=== PATIENT | male | born 1960 ===

== ENCOUNTER 2017-10-16 12:52 | Observation (INO) | payer BC, OTHER ==
[~2017-10-16] VITALS: Ht 180.3 cm; Wt 77.1 kg
[~2017-10-16 12:52] MED LIST: IPRA14.7 INH; PRON INH
--- NOTE | 2017-10-16 12:52 | NUR ---
Patient was BIBA and taken to bed 11 via gurney per EMS.
[2017-10-16 12:54] VITALS: BP 141/99
--- NOTE | 2017-10-16 13:18 | NUR ---
PT BIB EMR ON GURNEY FROM FOR C/O ABDOMINAL PAIN THAT STARTED SINCE 3 - 4 DAYS AGO, PT REPORTED THAT HX : COPD, ASTHMA. PT AA/O X4. BREATHING EVEN AND REGULAR.
--- NOTE | 2017-10-16 13:22 | NUR ---
Dr. Sandoval evaluating patient at bedside.
[2017-10-16] MEDS ORDERED: NACL 0.9% 1,000 ML IV SCH (13:27)
[2017-10-16] MEDS ORDERED: ALBUTEROL 0.083% 2.5 MG/3 ML NEBU INH ONE (13:30)
[2017-10-16] MEDS ORDERED: ONDANSETRON 4 MG/2 ML VIAL IVP ONE (13:30)
[2017-10-16] MEDS ORDERED: MORPHINE SULFATE 4 MG/ML SYR IVP ONE ×2 (13:30→15:10)
[2017-10-16] MEDS ORDERED: methylPREDNISolone SS 125 MG/2 ML VIAL IVP ONE (13:30)
[2017-10-16] MEDS ORDERED: IPRATROPIUM 0.02% 0.5 MG/2.5 ML NEBU INH ONE (13:30)
--- NOTE | 2017-10-16 13:35 | NUR ---
Patient taken to CT via wheelchair per tech.
--- NOTE | 2017-10-16 13:45 | NUR ---
RT AT THE BEDSIDE GIVEN PT BREATHING TREATMENT AT THIS TIME
--- NOTE | 2017-10-16 13:47 | NUR ---
PLEBHOTOMIST AT BEDSIDE FOR BLOOD DRAW PER MD ORDERED
--- NOTE | 2017-10-16 13:50 | NUR ---
EKD DONE AT BEDSIDE BT TECH AT THIS TIME.
[2017-10-16 13:59] LABS: EOSINOPHILS # (AUTO) 0.1 K/uL (0-0.4); MEAN CORPUSCULAR HGB CONC 33 g/dL (33-37)
[2017-10-16 14:04] LABS: BASOPHILS # (AUTO) 0.6 K/uL (0.00-0.22); HEMATOCRIT 50.7 % (36-52); HEMOGLOBIN 16.7 g/dL (12.0-18.0); LYMPHOCYTES # (AUTO) 1.9 K/uL (2.0-11.5); MEAN CORPUSCULAR HEMOGLOBIN 32 pg (27-31); MEAN CORPUSCULAR VOLUME 96 fL (80-94); MONOCYTES # (AUTO) 1.1 K/uL (0.8-1.0); NEUTROPHILS # (AUTO) 6.8 K/uL (1.8-7.7); PLATELET COUNT (AUTO) 246 K/uL (140-450); RED BLOOD CELL COUNT(AUTO) 5.28 MIL/uL (4.20-6.10); RED CELL DISTRIBUTION WIDTH 14.8 % (11.6-13.7); WHITE BLOOD COUNT (AUTO) 10.5 K/uL (4.8-10.8)
[2017-10-16 14:14] LABS: ANION GAP 16.9 (8-16); CARBON DIOXIDE 26.2 mmol/L (21-32); POTASSIUM 3.1 mmol/L (3.5-5.1)
[2017-10-16 14:18] LABS: PROTHROMBIN TIME 10.6 secs (10.8-13.4)
[2017-10-16 14:21] LABS: ALBUMIN 4.2 g/dL (3.4-5.0); TOTAL BILIRUBIN 0.5 mg/dL (0.0-1.0)
[2017-10-16 14:30] LABS: MONOCYTES % (AUTO) 5.2 % (1.7-9.3); NEUTROPHILS % (AUTO) 58.9 % (42.2-75.2)
[2017-10-16 14:31] LABS: BASOPHILS % (AUTO) 1.7 % (0.0-2.0); EOSINOPHILS % (AUTO) 1.2 % (0.0-4.0)
--- NOTE | 2017-10-16 14:38 | NUR ---
TAKEN XRAY AT BEDSIDE AT THIS TIME BY [employer]
[2017-10-16] MEDS ORDERED: HYDROCODONE-ACETAMIN 5-325 MG (15:28)
[2017-10-16] MEDS ORDERED: COMBIVENT RESPIMAT INHAL SPRAY (15:28)
[2017-10-16] MEDS ORDERED: ALBUTEROL SUL 2.5 MG/3 ML SOLN (15:28)
[2017-10-16 15:47] LABS: APPEARANCE,URINE CLEAR (CLEAR); BILIRUBIN,URINE NEGATIVE (NEGATIVE); BLOOD, URINE NEGATIVE (NEGATIVE); COLOR,URINE YELLOW (YELLOW); LEUKOCYTE ESTERASE ,URINE NEGATIVE (NEGATIVE); NITRITE, URINE NEGATIVE (NEGATIVE); UGLUCOSE NEGATIVE (NEGATIVE)
[2017-10-16] MEDS ORDERED: ALBUTEROL 0.083% 2.5 MG/3 ML NEBU IH PRN (16:30)
[2017-10-16] MEDS ORDERED: ONDANSETRON 4 MG/2 ML VIAL IVP PRN (16:30)
[2017-10-16] MEDS ORDERED: HYDROmorphone 1 MG/ML AMP IVP PRN (16:30)
--- NOTE | 2017-10-16 17:00 | NUR ---
PATIENT WAS TRANSFERRED FROM ER BY [facility]. REPORT WAS GIVEN AT BEDSIDE. VS WAS TAKEN. MRSA WAS SWABBED. IVF WAS STARTED. PATIENT'S RESPIRATION EVEN, UNLABOR, LUNGS SOUND CLEAR THROUGHOUT. CARDIAC WITH S1,S2 PRESENT. BOWEL SOUND ACTIVE 4 QUADRANTS. IV 18G ON LEFT FOREARM PATENT AND INTACT. PATIENT COMPLAINED OF PAIN 9/10 ON ABDOMEN THAT RADIATES TO THE LOWER BACK. WILL MEDICATE PER ORDER. FAMILY AT BEDSIDE. CALL LIGHT WITHIN REACH. WILL CONTINUE TO MONITOR
--- NOTE | 2017-10-16 17:10 | NUR ---
Patient will be admitted to care of DR. BROUSSARD. Admited to M/S. Will go to [id number]. Belongings list completed. Report to GINA.
[2017-10-16] MEDS: NACL 0.9% 1,000 ML IV SCH (17:22)
[2017-10-16] MEDS: HYDROmorphone PFS 2 MG/ML SYR IVP PRN ×2 (17:42→21:33)
--- NOTE | 2017-10-16 17:53 | NUR ---
ceftriazon COMPLETED 50ML INFUSED
[2017-10-16 18:06] VITALS: BP 130/83
--- NOTE | 2017-10-16 18:45 | NUR ---
PATIENT IS WALKING IN THE HALLWAY WITH FAMILY. STEADY GAIT
--- NOTE | 2017-10-16 19:07 | NUR ---
DR SIEGEL PAGED AND NOTIFIED OF POTASSIUM LEVEL 3.1, TELEPHONE ORDER RECEIVED FOR 40MEQ K-RIDER.
--- NOTE | 2017-10-16 19:18 | NUR ---
ENDORSEMENT GIVEN TO THE [employer]PHOL[employer] NURSE. PATIENT IS STABLE AT THIS TIME.
[2017-10-16] MEDS: IPRATROPIUM 0.02% 0.5 MG/2.5 ML NEBU IH SCH (19:30)
--- NOTE | 2017-10-16 19:30 | NUR ---
ASSUMED CARE OF PATIENT, AWAKE, ALERT AND ORIENTED. NO COMPLAINS. PLAN OF CARE DISCUSSED PATIENT, VERBALIZED UNDERSTANDING WELL. CALL LIGHT WITHIN REACH.
[2017-10-16] MEDS ORDERED: KCL 20 MEQ/WATER INJ PREMIX 200 ML IV ONE (20:00)
[2017-10-16] MEDS: KCL 20 MEQ/WATER INJ PREMIX 100 ML IV SCH ×2 (20:13→23:57)
--- NOTE | 2017-10-16 20:30 | NUR ---
DUE MEDS GIVEN. CARE BOARD UPDATED. NO COMPLAINS. CALL LIGHT WITHIN REACH. AMBULATING IN HALLWAY.
[2017-10-16] MEDS: metroNIDAZOLE 250 MG/NS PREMIX 50 ML IV SCH (21:32)
[2017-10-17 00:06] VITALS: BP 128/70
--- NOTE | 2017-10-17 00:08 | NUR ---
VITAL SIGNS STABLE. AFEBRILE. SLEEPING WELL. EASILY AROUSABLE. NO COMPLAINS AT THIS TIME. CALL LIGHT WITHIN REACH.
[2017-10-17] MEDS: IPRATROPIUM 0.02% 0.5 MG/2.5 ML NEBU IH SCH ×3 (00:29→12:57)
[2017-10-17] MEDS: HYDROmorphone PFS 2 MG/ML SYR IVP PRN ×2 (01:17→06:55)
[2017-10-17] MEDS: NACL 0.9% 1,000 ML IV SCH (03:59)
[2017-10-17] MEDS: metroNIDAZOLE 250 MG/NS PREMIX 50 ML IV SCH (05:10)
--- NOTE | 2017-10-17 06:00 | NUR ---
SLEEPING WELL. NO COMPLAINS. CALL LIGHT WITHIN REACH.
[2017-10-17 07:21] LABS: HEMATOCRIT 47.4 % (36-52); HEMOGLOBIN 15.6 g/dL (12.0-18.0); MEAN CORPUSCULAR HEMOGLOBIN 32 pg (27-31); MEAN CORPUSCULAR HGB CONC 33 g/dL (33-37); MEAN CORPUSCULAR VOLUME 97 fL (80-94); PLATELET COUNT (AUTO) 213 K/uL (140-450); RED BLOOD CELL COUNT(AUTO) 4.89 MIL/uL (4.20-6.10); WHITE BLOOD COUNT (AUTO) 4.7 K/uL (4.8-10.8)
--- NOTE | 2017-10-17 07:31 | NUR ---
ENDORSED CARE WITH KETURAH RN, PATIENT IN STABLE CONDITION.
--- NOTE | 2017-10-17 07:35 | NUR ---
RECEIVED REPORT FROM BRASS BUFFER NURSE, PT IS RESTING IN BED, A/OX4, AMBULATORY, NO S/S OR RESPIRATORY DISTRESS OR DISCOMFORT NOTED, IV IS ON THE LEFT FA, PATENT, INTACT, FLUSHING WELL, SKIN IS INTACT, DISCUSSED PLAN OF CARE WITH PT, PT VERBALIZED UNDERSTANDING, SAFETY/FALL PRECAUTIONS ARE IN PLACE, CALL LIGHT IS WITHIN REACH, WILL CONTINUE TO MONITOR.
[2017-10-17 08:00] VITALS: BP 151/92
[2017-10-17 08:14] LABS: ALBUMIN 3.8 g/dL (3.4-5.0); ANION GAP 17.4 (8-16); CARBON DIOXIDE 26.1 mmol/L (21-32); POTASSIUM 4.5 mmol/L (3.5-5.1); TOTAL BILIRUBIN 0.4 mg/dL (0.0-1.0)
[2017-10-17 08:23] LABS: LYMPHOCYTES % (MANUAL) 13 % (20-46); MONOCYTES % (MANUAL) 3 % (5-12)
--- NOTE | 2017-10-17 08:41 | NUR ---
PATIENT HAS BEEN SCREENED AND CATEGORIZED MODERATE NUTRITION RISK. PATIENT WILL BE SEEN WITHIN 3-5 DAYS OF ADMISSION. 10/19/17-10/21/[address]
--- NOTE | 2017-10-17 08:50 | NUR ---
DUE MEDICATION GIVEN, PT TOLERATED WELL, CALL LIGHT IS WITHIN REACH.
[2017-10-17] MEDS ORDERED: ENOXAPARIN 40 MG/0.4 ML SYR SUBQ SCH (09:00)
--- NOTE | 2017-10-17 09:30 | NUR ---
DR. BROUSSARD IS AT PATIENT'S BEDSIDE TALKING WITH PT. PER DOCTOR PATIENT CAN BE CHANGED TO REGULAR DIET AND BE DISCHARGED HOME IF PATIENT TOLERATES LUNCH.
--- NOTE | 2017-10-17 11:33 | NUR ---
PT SLEEPING IN BED, CALL LIGHT IS WITHIN REACH.
--- NOTE | 2017-10-17 13:15 | NUR ---
PATIENT DISCHARGE INSTRUCTIONS GIVEN. IV REMOVED, CATHETER TIP INTACT. ID WRIST BAND REMOVED. PATIENT STABLE UPON DISCHARGE ACCOMPANIED BY HIS FAMILY MEMBER.
--- NOTE | 2017-10-17 15:07 | NUR ---
CM NOTE INITIAL REVIEW FAXED TO [facility] / FAX# [phone], ATTN: EMILE [phone]
== END 2017-10-17 13:15 | disposition home or self-care (01) ==
LOC: MED 12:52 → MTU 16:41
PROVIDERS: ADMIT Internal Medicine; ATTEND Internal Medicine
DX: R10.9 Unspecified abdominal pain (principal); R11.2 Nausea with vomiting, unspecified; J44.1 Chronic obstructive pulmonary disease with (acute) exacerbation; F17.200 Nicotine dependence, unspecified, uncomplicated; Z98.890 Other specified postprocedural states
CPT/HCPCS: 36415; 71010; 80053; 81003; 83690; 85025; 85610; 85730; 87081; 93005; 94640; 96361; 96365; 96366; 96367; 96368; 96372; 96375; 96376; 99285; G0378; J0696; J1170; J1650; J2270; J2405; J2930; J3480; J3490; J7030; J7060; J7613; J7644; Q0092